=== PATIENT | male | born 1975 | race Caucasian/White ===

== ENCOUNTER 2020-10-06 17:05 | Emergency (ER) | payer SELFPAY ==
[~2020-10-06 17:05] MED LIST: EPINEPHrine SYRINGE 1 MG/10 ML SYRINGE ONE; NALOXONE 0.4 MG/ML VIAL. ONE; SODIUM BICARB ADULT 8.4% 50 MEQ/50 ML DISP.SYRIN. ONE
--- NOTE | 2020-10-06 17:23 | PHYS DOC ---
Past History Past Medical History: Hypertension Adult General HPI HPI Patient is a 45-year-old male presenting via EMS for cardiac arrest. History obtained by EMS personnel. Patient was apparently driving with best friend when patient started complaining of cramp in leg and pulled over to the side of the road. He got out and attempted to stretch said leg due to posterior pain when he was seen making 1 big gasp and collapsed. Best friend immediately called EMS and he was instructed on how to perform CPR. EMS arrived to scene and found patient to be unresponsive with ventricular fibrillation rate and so times 1 desynchronized shock administered without relief and so CPR resumed. Peripheral IV access to left upper extremity obtained and a total of x4 epi were administered in route to ER. Missael machine was applied to patient's chest to assist with chest compressions and an LMA placed. Patient remained in [facility] throughout entirety of hospital transport to our ER. Patient has been unresponsive and coding for 35 minutes prior to arrival. Review of Systems Review of Systems Unobtainable as patient condition is actively undergoing CPR Physical Exam Physical Exam Constitutional: Pt is ill-appearing with mottling to face, unresponsive, GCS 3, cardiac compressions in process HEENT: Head: Normocephalic and atraumatic. Mottling present to skin above shoulders External ears unremarkable, no oro sign Conjunctivae normal. Pupils are equal, round, and are not reactive to light. There is no ocular reflex present Oropharynx with LMA in place, there is active secretions with bagging that appear like nonbloody nonbilious emesis No hematomas or lacerations or abrasions to face or scalp Nares clear, no nasal septal hematoma Midface stable Neck: C-spine midline without step-offs Cardiovascular: Normal rate, regular rhythm and normal heart sounds. Pulmonary/Chest: In overt respiratory failure, LMA in place, bagging easily with bilateral chest rise and crackling breath sounds Abdominal: Soft. Bowel sounds are normal. Pt exhibits no distension. There is no tenderness. Musculoskeletal: No bony abnormalities to extremities, no deformities, full passive ROM extremities Chest wall stable with Missael in place in adequate position performing chest compressions Pelvis stable and non-tender No vertebral spine step-offs Neurological: GCS 3 Not moving any extremities willfully, no purposeful movements exhibited Downgoing toes bilaterally No gag reflex Skin: Skin is cool and dry. No abrasions, no lacerations Psychiatric: Unable to fully assess Current Patient Data Lab Results Laboratory Tests Test 10/06/20 17:05 White Blood Count 17.3 x10^3/uL Red Blood Count 5.01 x10^6/uL Hemoglobin 14.7 g/dL Hematocrit 48.5 % Mean Corpuscular Volume 97 fL Mean Corpuscular Hemoglobin 29 pg Mean Corpuscular Hemoglobin Concent 30 g/dL Red Cell Distribution Width 15.4 % Platelet Count 200 x10^3/uL Neutrophils (%) (Auto) 53 % Lymphocytes (%) (Auto) 34 % Monocytes (%) (Auto) 12 % Eosinophils (%) (Auto) 1 % Basophils (%) (Auto) 1 % Neutrophils # (Auto) 9.2 x10^3uL Lymphocytes # (Auto) 5.8 x10^3/uL Monocytes # (Auto) 2.0 x10^3/uL Eosinophils # (Auto) 0.1 x10^3/uL Basophils # (Auto) 0.1 x10^3/uL Platelet Estimate Pending Sodium Level 147 mmol/L Potassium Level 4.7 mmol/L Chloride Level 102 mmol/L Carbon Dioxide Level 18 mmol/L Anion Gap 27 Blood Urea Nitrogen 20 mg/dL Creatinine 2.9 mg/dL Estimated GFR (Cockcroft-Gault) 23.6 BUN/Creatinine Ratio 7 Glucose Level 199 mg/dL Calcium Level 10.5 mg/dL Total Bilirubin 0.3 mg/dL Aspartate Amino Transf (AST/SGOT) 26 U/L Alanine Aminotransferase (ALT/SGPT) 33 U/L Alkaline Phosphatase 110 U/L Troponin I Quantitative < 0.017 ng/mL Total Protein 6.8 g/dL Albumin 4.0 g/dL Albumin/Globulin Ratio 1.4 Salicylates Level 3.8 mg/dL Salicylate Last Dose Date Unk Salicylate Last Dose Time Unk Acetaminophen Level < 2.0 mcg/mL Acetaminophen Last Dose Date Unk Acetaminophen Last Dose Time Unk Ethyl Alcohol Level < 10 mg/dL EKG EKG [] Radiology/Procedures Radiology/Procedures [] Heart Score C/O Chest Pain: N/A HEART Score for Chest Pain: HEART Score for Chest Pain Response (Comments) Value History Highly Suspicious 2 Age > 65 2 Risk Factors >3 Risk Factors or Hx CAD 2 Troponin < Normal Limit 0 Total 6 Risk Factors: Risk Factors: DM, Current or recent (<one month) smoker, HTN, HLP, family history of CAD, obesity. Risk Scores: Risk Factors: DM, Current or recent (<one month) smoker, HTN, HLP, family history of CAD, obesity. Course & Med Decision Making Course & Med Decision Making Patient undergoing active CPR on arrival See code sheet for specifics on rescusitation efforts Patient presented after witnessed arrest and had been undergoing CPR resuscitation for 30 minutes prior to arrival. There was no ROSC despite all ER interventions available After 50 minutes of being down in no obvious neurologic activity based on physical exam findings and ongoing asystole during rhythm checks, joint decision among all to stop further resuscitation efforts. No cardiac activity confirmed by bedside ultrasound I performed formal assessment and pronounced patient at 1514 hrs. Mother, stepfather and best friend later presented to ER notified, condolences and resources offered, all questions and concerns addressed Critical Care Time This patient required critical care. Due to the fact that the patient required a significant amount of one on one physician - patient contact time, ordering and review of studies, arranging urgent treatment with development of a management plan, evaluation of patients response to treatment with frequent reassessments, and discussions with other providers this patient required 40 minutes of critical care time. Critical care time was indicated due to the inherent instability and/or potential for instability in this patient. The critical care time that is allocated to this patient is above and beyond any time spent on any other billable procedures performed on this patient. Dragon Disclaimer Dragon Disclaimer This electronic medical record was generated, in whole or in part, using a voice recognition dictation system. Departure Departure: Impression: Primary Impression: Cardiac arrest Disposition: 20 Condition: Referrals: PCP,UNKNOWN (PCP) NENO ROSADO DO Oct 06, 2020 17:23
[2020-10-06 18:49] LABS: BASO # 0.1 x10^3/uL (0.0-0.2); BASO % 1 % (0-3); EOS # 0.1 x10^3/uL (0.0-0.7); EOS % 1 % (0-3); HEMATOCRIT 48.5 % (39.0-53.0); HEMOGLOBIN 14.7 g/dL (13.0-17.5); LYMPH # 5.8 x10^3/uL (1.0-4.8); LYMPH % 34 % (24-48); MEAN CORPUSCULAR HEMOGLOBIN 29 pg (25-35); MEAN CORPUSCULAR HGB CONC 30 g/dL (31-37); MEAN CORPUSCULAR VOLUME 97 fL (79-100); MONO % 12 % (0-9); NEUT # 9.2 x10^3uL (1.8-7.7); NEUT % 53 % (31-73); PLATELET COUNT 200 x10^3/uL (140-400); RED BLOOD COUNT 5.01 x10^6/uL (4.30-5.70); RED CELL DISTRIBUTION WIDTH 15.4 % (11.5-14.5); WHITE BLOOD COUNT 17.3 x10^3/uL (4.0-11.0)
[2020-10-06 18:53] LABS: CALCIUM 10.5 mg/dL (8.5-10.1); CREATININE 2.9 mg/dL (0.7-1.3); GFR 23.6; POTASSIUM 4.7 mmol/L (3.5-5.1)
[2020-10-06 18:59] LABS: ACETAMIN < 2.0 mcg/mL (10-30); ALBUMIN/GLOBULIN RATIO 1.4 (1.0-1.7); ETHANOL < 10 mg/dL (0-10); SALIC 3.8 mg/dL (2.8-20.0); TOTAL BILIRUBIN 0.3 mg/dL (0.2-1.0); TOTAL PROTEIN 6.8 g/dL (6.4-8.2)
[2020-10-06 20:09] LABS: % ATYL 3 % (0-0); % BANDS 6 % (0-9); % LYMPHS 35 % (24-48); % MONOS 11 % (0-10); % SEGS 45 % (35-66)
[2020-10-06 20:10] LABS: PLT ESTIMATE ADEQUATE (ADEQUATE)
== END 2020-10-06 17:14 ==
LOC: ER 17:05
DX: I46.9 Cardiac arrest, cause unspecified (principal); J96.90 Respiratory failure, unspecified, unspecified whether with hypoxia or hypercapnia
CPT/HCPCS: 36415; 80053; 80329; 84484; 85007; 85025; 92950; 99285; G0480; J0171; J2310